=== PATIENT | female | born 1950 | race Hispanic/Latino ===

== ENCOUNTER → 2017-12-03 | Outpatient (CLI) | payer OTHER ==
[~2017-12-03] MED LIST: ASPI-1181 PO; ATEN25TA PO; ATOR40TA71 PO; BIOT10004 PO; BUPR-47 PO; CALC600T12 PO; CHOL500051 PO; CLOP75TA32 PO; FOLI0.8T PO; GLUC100019 PO; IOPAMIDOL-370 100 ML VIAL IV ONE; IOPAMIDOL-370 75 ML VIAL IV ONE; ISOS20TA9 PO; LETR2.5T6 PO; VITA400C25 PO; VITAMIN B12 PO
== END | disposition home or self-care (01) ==
LOC: OIH 08:18
PROVIDERS: ATTEND Internal Medicine Cardiovascular Disease
DX: I71.4 Abdominal aortic aneurysm, without rupture (principal); K57.30 Diverticulosis of large intestine without perforation or abscess without bleeding
CPT/HCPCS: 75635; Q9967 ×2

== ENCOUNTER → 2018-03-04 | Outpatient (CLI) | payer OTHER ==
[~2018-03-04] MED LIST changes: -IOPAMIDOL-370 75 ML VIAL IV ONE; +LISI-613 PO
== END | disposition home or self-care (01) ==
LOC: RAH 08:52
PROVIDERS: ATTEND Internal Medicine Cardiovascular Disease
DX: I71.9 Aortic aneurysm of unspecified site, without rupture (principal); I77.4 Celiac artery compression syndrome; K57.30 Diverticulosis of large intestine without perforation or abscess without bleeding; I70.8 Atherosclerosis of other arteries; I10 Essential (primary) hypertension; E78.5 Hyperlipidemia, unspecified; I25.10 Atherosclerotic heart disease of native coronary artery without angina pectoris
CPT/HCPCS: 74174; Q9967

== ENCOUNTER → 2018-07-30 | Outpatient (CLI) | payer OTHER ==
[~2018-07-30] MED LIST changes: -IOPAMIDOL-370 100 ML VIAL IV ONE
== END | disposition home or self-care (01) ==
LOC: SHCH 10:01
PROVIDERS: ATTEND Internal Medicine Cardiovascular Disease
DX: I65.22 Occlusion and stenosis of left carotid artery (principal); I25.810 Atherosclerosis of coronary artery bypass graft(s) without angina pectoris
CPT/HCPCS: 93880

== ENCOUNTER → 2018-08-21 | Outpatient (CLI) | payer OTHER ==
[~2018-08-21] MED LIST changes: +IOHEXOL-350 75 ML VIAL IV ONE
== END | disposition home or self-care (01) ==
LOC: RAH 07:26
PROVIDERS: ATTEND Internal Medicine Cardiovascular Disease
DX: I65.23 Occlusion and stenosis of bilateral carotid arteries (principal)
CPT/HCPCS: 70498; Q9967

== ENCOUNTER 2018-10-21 05:44 | Inpatient (IN) | payer OTHER ==
[2018-10-19 11:23] LABS: BASOPHILS % (AUTO) 0.4 % (0.0-5.0); EOSINOPHILS % (AUTO) 1.8 % (0.0-8.0); HEMATOCRIT 44.1 % (36-48); MEAN CORPUSCULAR HGB CONC 34.2 g/dL (32.0-36.0); MEAN CORPUSCULAR VOLUME 96.5 fL (79-99); MONOCYTES % (AUTO) 9.6 % (3.0-13.0); NEUTROPHILS % (AUTO) 66.2 % (40.0-77.0); PLATELET COUNT (AUTO) 249 K/uL (130-400); RED BLOOD CELL COUNT(AUTO) 4.57 MIL/uL (4.00-5.50); RED CELL DISTRIBUTION WIDTH 13.7 % (11.0-15.5); WHITE BLOOD COUNT (AUTO) 5.4 K/uL (4.8-10.8)
[2018-10-19 11:27] LABS: POTASSIUM 4.9 mmol/L (3.5-5.1)
[2018-10-19 11:39] VITALS: BP 147/93
[2018-10-19 11:41] LABS: INR 1.04 (0.85-1.15); PARTIAL THROMBOPLASTIN TIME 26.4 SEC (26.3-35.5); PROTHROMBIN TIME 10.9 SEC (9.6-11.6)
[2018-10-19 11:49] LABS: APPEARANCE,URINE CLEAR (CLEAR); BILIRUBIN,URINE NEGATIVE (NEGATIVE); COLOR,URINE YELLOW (YELLOW); GLUCOSE, URINE (UA) NEGATIVE (NEGATIVE); KETONES,URINE NEGATIVE (NEGATIVE); LEUKOCYTE ESTERASE ,URINE NEGATIVE (NEGATIVE); NITRATE,URINE NEGATIVE (NEGATIVE); OCCULT BLOOD,URINE NEGATIVE (NEGATIVE); PH,URINE 5.5 (5.0-8.0); PROTEIN,URINE 30 mg/dL (NEGATIVE); UROBILINOGEN,URINE 0.2 mg/dL (0.2-1.0)
[2018-10-21] VITALS (15 sets, daily range): BP systolic 133–189; BP diastolic 52–80
[~2018-10-21] VITALS: Ht 165.1 cm; Wt 79.4 kg
[~2018-10-21 05:44] MED LIST changes: +ATOR-2 PO; -ATOR40TA71 PO; -CHOL500051 PO; -IOHEXOL-350 75 ML VIAL IV ONE; +LEVO100 PO; +SODIUM CHLORIDE 0.9% 500ML 500 ML IV SCH
[2018-10-21] MEDS: HYDRALAZINE HCL 20 MG/ML VIAL IV SCH (07:14)
[2018-10-21] MEDS ORDERED: HEPARIN SODIUM 1000UNIT/ML 10ML VIAL ONE (07:20)
[2018-10-21] MEDS ORDERED: NITROGLYCERIN 5 MG/ML 10 ML VIAL IV ONE (07:20)
[2018-10-21] MEDS ORDERED: SODIUM BICARB 50MEQ 50ML VIAL ONE (07:20)
[2018-10-21] MEDS ORDERED: IODIXANOL 320 MG/ML 100 ML VIAL ONE (07:21)
[2018-10-21] MEDS ORDERED: LIDOCAINE HCL 2% 20ML ONE (07:21)
[2018-10-21] MEDS ORDERED: SODIUM CHLORIDE 0.9% 1000ML 1,000 ML IV ONE (07:26)
[2018-10-21] MEDS ORDERED: MEPERIDINE-PF 25 MG/ML SYG ONE ×2 (07:31→07:41)
[2018-10-21] MEDS ORDERED: MIDAZOLAM HCL 1 MG/ML 2ML VIAL ONE ×2 (07:31→07:41)
[2018-10-21] MEDS ORDERED: SODIUM CHLORIDE 0.9% 1000ML 1,000 ML IV SCH (08:17)
[2018-10-21] MEDS ORDERED: HYDRALAZINE HCL 20 MG/ML VIAL ONE (08:30)
[2018-10-21] MEDS ORDERED: ACETAMINOPHEN 325 MG TAB PO PRN ×2 (08:30→11:45)
[2018-10-21] MEDS ORDERED: TRAMADOL HCL 50 MG TABLET PO PRN (11:45)
[2018-10-21] MEDS: ISOSORBIDE DINITRATE 20 MG TABLET PO SCH ×2 (14:00→20:59)
--- NOTE | 2018-10-21 16:00 | NUR ---
REPORT RECEIVED FROM MICHELLE Haas
--- NOTE | 2018-10-21 17:10 | NUR ---
REPORT GIVEN TO GHAZALA GARCIA
[2018-10-21] MEDS: ATENOLOL 25 MG TABLET PO SCH (20:59)
[2018-10-22] VITALS (24 sets, daily range): BP systolic 86–173; BP diastolic 48–84
--- NOTE | 2018-10-22 03:37 | NUR ---
PATIENT RESTING IN BED. ALERT AND ORIENTED. NO C/O CHEST PAIN OR GROIN PAIN. LEFT GROIN SOFT, NO HEMATOMA. BILATERAL PEDAL PULSES INTACT WITH DOPPLER. PATIENT NPO SINCE MIDNIGHT. CLIPPED, PREPPED, AND SHOWERED FOR FEMORAL BYPASS 10/22.
[2018-10-22 03:52] LABS: HEMATOCRIT 40.9 % (36-48); MEAN CORPUSCULAR HEMOGLOBIN 32.3 pg (27.0-33.0); MEAN CORPUSCULAR HGB CONC 33.9 g/dL (32.0-36.0); MEAN CORPUSCULAR VOLUME 95.5 fL (79-99); PLATELET COUNT (AUTO) 254 K/uL (130-400); RED BLOOD CELL COUNT(AUTO) 4.29 MIL/uL (4.00-5.50); RED CELL DISTRIBUTION WIDTH 13.6 % (11.0-15.5); WHITE BLOOD COUNT (AUTO) 5.8 K/uL (4.8-10.8)
[2018-10-22 03:53] LABS: HEMOGLOBIN A1C 6.4 % (4.0-6.0)
[2018-10-22 04:03] LABS: INR 1.02 (0.85-1.15); PARTIAL THROMBOPLASTIN TIME 25.3 SEC (26.3-35.5); PROTHROMBIN TIME 10.7 SEC (9.6-11.6)
[2018-10-22 04:16] LABS: POTASSIUM 4.4 mmol/L (3.5-5.1)
[2018-10-22] MEDS: ISOSORBIDE DINITRATE 20 MG TABLET PO SCH ×3 (08:03→20:45)
[2018-10-22] MEDS: LISINOPRIL 20 MG TABLET PO SCH (08:03)
[2018-10-22] MEDS: FOLIC ACID 1 MG TABLET PO SCH (08:03)
[2018-10-22] MEDS: ATENOLOL 25 MG TABLET PO SCH ×2 (08:04→20:45)
[2018-10-22] MEDS: LEVOTHYROXINE 100 MCG TABLET PO SCH (08:04)
[2018-10-22] MEDS: ATORVASTATIN CALCIUM 40 MG TABLET PO SCH (08:05)
[2018-10-22] MEDS: LETROZOLE 2.5 MG PO SCH (09:00)
[2018-10-22] MEDS: **HM** BUPROPION XL 150MG PO SCH (09:00)
[2018-10-22] MEDS ORDERED: CEFAZOLIN SODIUM 1 GM VIAL IVP PRN (09:00)
[2018-10-22] MEDS: HYDRALAZINE HCL 20 MG/ML VIAL IV SCH (13:01)
[2018-10-22] MEDS ORDERED: PAPAVERINE HCL 30 MG/ML 2ML VIAL ONE (15:22)
[2018-10-22] MEDS ORDERED: BACITRACIN 50,000 UNIT VIAL ONE (15:22)
--- NOTE | 2018-10-22 15:22 | NUR ---
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 Called the security for the personal belonging to safe custody.
--- NOTE | 2018-10-22 15:25 | NUR ---
PT BELONGINGS Pt's earrings and eyeglasses given to database security expert to be placed with remainder of pt's belongings - pt to OR via bed.
[2018-10-22] MEDS ORDERED: SUCCINYLCHOLINE 200MG/10ML SYR ONE (15:40)
[2018-10-22] MEDS ORDERED: LIDOCAINE PF 2% 5ML ABBOJECT ONE (15:40)
[2018-10-22] MEDS ORDERED: HEPARIN SODIUM 1000UNIT/ML 10ML VIAL ONE (15:40)
[2018-10-22] MEDS ORDERED: FENTANYL CITRATE PF 50 MCG/1 ML 2ML VIAL ONE (15:41)
[2018-10-22] MEDS ORDERED: ROCURONIUM 10MG/1ML SYR 10 MG/ML ML ONE (15:41)
[2018-10-22] MEDS ORDERED: PROPOFOL 10 MG/ML 20ML VIAL IV ONE (15:41)
[2018-10-22] MEDS ORDERED: PHENYLEPHRINE HCL 10 MG/ML 1ML VIAL IV ONE (15:46)
[2018-10-22] MEDS ORDERED: MIDAZOLAM HCL 1 MG/ML 2ML VIAL ONE (15:56)
[2018-10-22] MEDS ORDERED: HYDRALAZINE HCL 20 MG/ML VIAL ONE (16:30)
[2018-10-22] MEDS ORDERED: EPHEDRINE SULFATE 50 MG/ML AMPULE ONE (16:50)
[2018-10-22] MEDS ORDERED: HYDRALAZINE HCL 20 MG/ML VIAL IV PRN (17:00)
[2018-10-22] MEDS ORDERED: GLYCOPYRROLATE 1 MG/5 ML SYRINGE ONE (17:22)
[2018-10-22] MEDS ORDERED: NEOSTIGMINE 5MG/5ML SYR IV ONE (17:22)
--- NOTE | 2018-10-22 17:39 | NUR ---
PT WITH PEDAL PULSES BY DOPPLER. Addendum: 10/22/18 at 1750 by CAROL DUNAWAY RN RN Amended: Links added.
--- NOTE | 2018-10-22 17:57 | NUR ---
RT PEDAL PULSES BY DOPPLER. RT FOOT CAPILLARY REFILL GOOD. RT FOOT WARM TO TACTILE. PINK TOES. Addendum: 10/22/18 at 1801 by CAROL DUNAWAY RN RN Amended: Links added.
[2018-10-22] MEDS ORDERED: MEPERIDINE-PF 25 MG/ML SYG ONE (18:05)
[2018-10-22] MEDS ORDERED: MORPHINE SULFATE 4 MG/1ML SYG ONE (18:20)
--- NOTE | 2018-10-22 18:53 | NUR ---
RT FOOT PULSES BY DOPPLER, WARM TO TOUCH AND PINK IN COLOR. Addendum: 10/22/18 at 1854 by CAROL DUNAWAY RN RN Amended: Links added.
--- NOTE | 2018-10-22 19:00 | NUR ---
POST OP STATUS Received post op back to room 228. Upon arrival, AAO - appropriate. Incisional pain reported. Dry drsgs to right femoral surgical site as well as right medial leg at level of the knee. No evidence of bleeding, oozing or hematoma. RLE warm to touch.
--- NOTE | 2018-10-22 20:35 | NUR ---
PATIENT CONVERTED FROM SR TO A-FIB. 90-120S. NOT SUSTAINING 120S
[2018-10-22] MEDS: TRAMADOL HCL 50 MG TABLET PO PRN (20:46)
--- NOTE | 2018-10-22 20:50 | NUR ---
PATIENT HR 150-160's sustaining. MD Stephen called to inform at 2100. Verbal orders given. Administer 0.5mg digoxin IV once. Start amiodarone drip per protocol.
[2018-10-22] MEDS ORDERED: DIGOXIN 250 MCG/ML 2ML AMP IV STA (21:22)
[2018-10-22] MEDS ORDERED: AMIODARONE HCL 900 MG in DEXTROSE 5%-WATER 500 ML IV PRN (21:30)
[2018-10-22] MEDS ORDERED: AMIODARONE HCL 150 MG in DEXTROSE 5%-WATER 100 ML IV PRN (21:30)
[2018-10-22] MEDS ORDERED: DIGOXIN 250 MCG/ML 2ML AMP IV SCH (21:30)
[2018-10-22] MEDS ORDERED: DIGOXIN 250 MCG/ML 2ML AMP ONE (21:33)
[2018-10-23 03:24] VITALS: BP 111/63
[2018-10-23] MEDS: CEFAZOLIN SODIUM 1 GM VIAL IVP SCH ×2 (03:48→14:55)
[2018-10-23] MEDS: TRAMADOL HCL 50 MG TABLET PO PRN ×3 (03:49→15:28)
--- NOTE | 2018-10-23 03:59 | NUR ---
Patient alert and oriented. Resting in bed. RLE elevated on 2 pillows. R groin dressing intact. R lateral knee dressing intact. Visible swelling to R knee. Bilateral pedal pulses checked with Doppler throughout the night. Pulses intact. Medicated x2 with ordered PO pain medication. Patient converted from A-fib to SR rhythm. Currently on amiodarone per Dr Stephen orders. Bed bath given to patient. Will continue monitor procedure sites, pulses, and heart rate/ rhythm.
[2018-10-23 08:00] VITALS: BP 133/56
[2018-10-23] MEDS: FOLIC ACID 1 MG TABLET PO SCH (08:39)
[2018-10-23] MEDS: ATORVASTATIN CALCIUM 40 MG TABLET PO SCH (08:39)
[2018-10-23] MEDS: LISINOPRIL 20 MG TABLET PO SCH (08:41)
[2018-10-23] MEDS: ATENOLOL 25 MG TABLET PO SCH ×2 (08:41→21:52)
[2018-10-23] MEDS: LEVOTHYROXINE 100 MCG TABLET PO SCH (08:41)
[2018-10-23] MEDS: ISOSORBIDE DINITRATE 20 MG TABLET PO SCH ×3 (08:41→21:51)
[2018-10-23] MEDS: **HM** BUPROPION XL 150MG PO SCH (09:00)
[2018-10-23] MEDS ORDERED: ASPIRIN 81 MG EC TAB PO SCH (09:00)
[2018-10-23] MEDS: LETROZOLE 2.5 MG PO SCH (09:00)
--- NOTE | 2018-10-23 09:39 | NUR ---
Dr.Juan Almanza made the rounds. Discharge planning not today. No plan for amiodarone po at this time. Finish the drip and d/c amiodarone.
--- NOTE | 2018-10-23 10:17 | NUR ---
WILL Vazquez met with pt who lives independently at home alone. Pt reports she has no Dme or in home care services. ER contacts are daughter Tiara Silverio [phone] and friend Lolita Cheek [phone]. Plan is home at ut
[2018-10-23 12:00] VITALS: BP 143/55
[2018-10-23 19:31] VITALS: BP 139/64
[2018-10-23 23:30] VITALS: BP 157/63
[2018-10-24] MEDS: TRAMADOL HCL 50 MG TABLET PO PRN ×3 (01:40→14:53)
[2018-10-24 04:16] VITALS: BP 147/59
[2018-10-24] MEDS: CEFAZOLIN SODIUM 1 GM VIAL IVP SCH (05:20)
[2018-10-24 07:00] VITALS: BP 159/63
--- NOTE | 2018-10-24 08:40 | NUR ---
RESTING IN BED WITH HOB AT 30 DEGREES, RESP.'S EVEN AND UNLABORED. AAOX3, DENIES ANY C/O SOB. RIGHT GROIN DRSG IN PLACE, D/I. RIGHT KNEE DRSG IN PLACE, D/I. C/O PAIN TO RIGHT LEG ON ACTIVITY, DENIES ANY C/O WEAKNESS TO RLE; STATES FOOT FEELS MUCH BETTER AFTER SURGERY. STATES NO FURTHER PAIN TO FOOT, ONLY SURGICAL INCISION DISCOMFORT AT TIMES. CALL LIGHT WITHIN REACH, VERBALIZED ABILITY TO USE. BED LOW, SIDE RAILS UP X2.
[2018-10-24] MEDS: LISINOPRIL 20 MG TABLET PO SCH (08:43)
[2018-10-24] MEDS: LEVOTHYROXINE 100 MCG TABLET PO SCH (08:44)
[2018-10-24] MEDS: FOLIC ACID 1 MG TABLET PO SCH (08:44)
[2018-10-24] MEDS: ATORVASTATIN CALCIUM 40 MG TABLET PO SCH (08:44)
[2018-10-24] MEDS: ISOSORBIDE DINITRATE 20 MG TABLET PO SCH ×2 (08:44→14:50)
[2018-10-24] MEDS: **HM** BUPROPION XL 150MG PO SCH (08:47)
[2018-10-24] MEDS: LETROZOLE 2.5 MG PO SCH (08:48)
[2018-10-24] MEDS: ATENOLOL 25 MG TABLET PO SCH (08:53)
[2018-10-24 10:03] LABS: BASOPHILS % (AUTO) 0.1 % (0.0-5.0); EOSINOPHILS % (AUTO) 0.5 % (0.0-8.0); HEMATOCRIT 35.2 % (36-48); LYMPHOCYTES % (AUTO) 13.2 % (21.0-51.0); MEAN CORPUSCULAR HEMOGLOBIN 32.3 pg (27.0-33.0); MEAN CORPUSCULAR HGB CONC 33.8 g/dL (32.0-36.0); MEAN CORPUSCULAR VOLUME 95.6 fL (79-99); MONOCYTES % (AUTO) 14.4 % (3.0-13.0); NEUTROPHILS % (AUTO) 71.8 % (40.0-77.0); PLATELET COUNT (AUTO) 211 K/uL (130-400); RED BLOOD CELL COUNT(AUTO) 3.68 MIL/uL (4.00-5.50); RED CELL DISTRIBUTION WIDTH 13.9 % (11.0-15.5); WHITE BLOOD COUNT (AUTO) 7.8 K/uL (4.8-10.8)
[2018-10-24 10:06] LABS: CREATININE 0.9 mg/dL (0.5-1.5)
[2018-10-24 11:00] VITALS: BP 135/62
--- NOTE | 2018-10-24 14:00 | NUR ---
DR. Forrest GARCIA IN ROOM SPEAKING WITH PT. RE:DISCHARGE DISPOSITION. QUESTIONS ANSWERED BY DR. GARCIA.
--- NOTE | 2018-10-24 16:45 | NUR ---
HL REMOVED, CATHETER INTACT. DISCHARGE INSTRUCTIONS GIVEN TO PT. AND SISTER AT BEDSIDE, VERBALIZED MUTUAL UNDERSTANDING. DRSG'S TO RIGHT GROIN AND RIGHT KNEE CHANGED. INCISIONS WELL APPROXIMATED D/I WITH SCAB FORMATION NOTED; NO HEMATOMA NOTED. RIGHT GROIN WITH ECCHYMOSIS, NO HEMATOMA. RIGHT KNEE WITH NON-PITTING EDEMA. APPLIED NEW NON-ADHERENT GAUZED TO RIGHT GROIN AND KNEE, SECURED WITH HYPAFIX TAPE. PT. TO FOLLOW DR. Forrest GARCIA' INSTRUCTIONS RE:KEEPING DRSG'S DRY, PER PT.
[2018-10-24] MEDS ORDERED: RIVAROXABAN 20 MG TABLET PO SCH (21:00)
[2018-10-25] MEDS ORDERED: LISINOPRIL 40 MG TABLET PO SCH (09:00)
== END 2018-10-24 17:30 | disposition home or self-care (01) | DRG 253 ==
LOC: DAH 05:44 → DAHIP 05:45 → DAH 05:45 → 2DH 17:46
PROVIDERS: ADMIT Internal Medicine Cardiovascular Disease; ATTEND Internal Medicine Cardiovascular Disease
PROC: 041K0ZL Bypass Right Femoral Artery to Popliteal Artery, Open Approach (ICD-10-PCS; principal; 2018-10-21)
PROC: B41G1ZZ Fluoroscopy of Left Lower Extremity Arteries using Low Osmolar Contrast (ICD-10-PCS; 2018-10-21)
PROC: B41F1ZZ Fluoroscopy of Right Lower Extremity Arteries using Low Osmolar Contrast (ICD-10-PCS; 2018-10-21)
DX: E11.51 Type 2 diabetes mellitus with diabetic peripheral angiopathy without gangrene (principal); I70.92 Chronic total occlusion of artery of the extremities; E78.5 Hyperlipidemia, unspecified; I25.10 Atherosclerotic heart disease of native coronary artery without angina pectoris; I70.201 Unspecified atherosclerosis of native arteries of extremities, right leg; I48.0 Paroxysmal atrial fibrillation; I71.4 Abdominal aortic aneurysm, without rupture; Z92.3 Personal history of irradiation; Z95.1 Presence of aortocoronary bypass graft; Z85.3 Personal history of malignant neoplasm of breast
CPT/HCPCS: 36140; 36415; 71045; 75710; 80048; 80061; 81003; 83036; 85025; 85027; 85610; 85730; 86850; 86900; 86901; 86922; 93005; 97039; 99156; 99157; A4218; A4606; C1768; C1894; G0378; J0330; J0360; J0690; J1160; J1644; J2001; J2175; J2250; J2270; J2370; J2440; J2704; J2710; J3010; J3490; J7030; J7040; J7120; Q9967

== ENCOUNTER 2019-02-05 07:31 | Day surgery (SDC) | payer OTHER ==
[2019-02-05] VITALS (8 sets, daily range): BP systolic 75–152; BP diastolic 29–72
[~2019-02-05] VITALS: Ht 160 cm; Wt 72.6 kg
[~2019-02-05 07:31] MED LIST changes: +AMIO200T5 PO; -ATEN25TA PO; -CLOP75TA32 PO; +FURO20TA6 PO; -ISOS20TA9 PO; +METO50 PO; +POTA-79 PO; +RIVA20TA PO; +SODIUM CHLORIDE 0.9% 1000ML 1,000 ML IV ONE; -SODIUM CHLORIDE 0.9% 500ML 500 ML IV SCH
[2019-02-05] MEDS ORDERED: EPHEDRINE SULFATE 50 MG/ML AMPULE ONE (10:06)
== END 2019-02-05 13:45 | disposition home or self-care (01) ==
LOC: ENDO 07:31 → DAH 07:31 → ENDO 13:45
PROVIDERS: ATTEND Internal Medicine
DX: K63.3 Ulcer of intestine (principal); K57.30 Diverticulosis of large intestine without perforation or abscess without bleeding; K63.89 Other specified diseases of intestine; K92.1 Melena; I25.10 Atherosclerotic heart disease of native coronary artery without angina pectoris; I25.2 Old myocardial infarction; Z85.3 Personal history of malignant neoplasm of breast; E03.9 Hypothyroidism, unspecified; E78.2 Mixed hyperlipidemia; I10 Essential (primary) hypertension; Z95.5 Presence of coronary angioplasty implant and graft; Z98.890 Other specified postprocedural states; Z95.1 Presence of aortocoronary bypass graft; Z79.01 Long term (current) use of anticoagulants; I48.91 Unspecified atrial fibrillation
CPT/HCPCS: 45380; 88305; A4606; J3490; J7030